=== PATIENT | female | born 1955 | race African-American/Black ===

== ENCOUNTER 2019-04-07 13:12 | Emergency (ER) | payer MEDICARE ==
[2019-04-07 13:48] VITALS: BP 153/79
--- NOTE | 2019-04-07 13:55 | ER Document Report ---
ED Medical Screen (RME) - General Chief Complaint: Sore Throat Stated Complaint: SORE THROAT Time Seen by Provider: 04/07/19 13:52 Primary Care Provider: PETER FRASER MD [Primary Care Provider] - Follow up as needed Mode of Arrival: Ambulatory Information source: Patient Notes: 64-year-old female presents to ED for complaint of pain in the throat right ear and right side of her neck. She does not have tonsils that she has had a tonsillectomy. She is alert oriented respirations regular nonlabored speaking in full sentences walks with even steady gait. She is afebrile at this time. She states she is just feeling miserable. I have greeted and performed a rapid initial assessment of this patient. A comprehensive ED assessment and evaluation of the patient, analysis of test results and completion of medical decision making process will be conducted by an additional ED providers. TRAVEL OUTSIDE OF THE [place] IN LAST 30 DAYS: No - Related Data Allergies/Adverse Reactions: butorphanol tartrate [From Stadol] Allergy (Verified 04/07/19 13:52) gabapentin [From Neurontin] Allergy (Verified 04/07/19 13:52) naproxen [From Naprosyn] Allergy (Verified 04/07/19 13:52) Penicillins Allergy (Verified 04/07/19 13:52) tramadol HCl [From Ultram] Allergy (Verified 04/07/19 13:52) Past Medical History Musculoskeltal Medical History: Reports Hx Arthritis Physical Exam - Vital signs Vitals: Temp Pulse Resp BP Pulse Ox 98.9 F 67 16 153/79 H 98 04/07/19 13:47 04/07/19 13:47 04/07/19 13:47 04/07/19 13:47 04/07/19 13:47 Course - Vital Signs Vital signs: Temp Pulse Resp BP Pulse Ox 98.9 F 67 16 153/79 H 98 04/07/19 13:47 04/07/19 13:47 04/07/19 13:47 04/07/19 13:47 04/07/19 13:47 Doctor's Discharge - Discharge Referrals: PETER FRASER MD [Primary Care Provider] - Follow up as needed
--- NOTE | 2019-04-07 14:17 | ER Document Report ---
HPI - HPI Patient complains to provider of: sore throat right ear pain Time Seen by Provider: 04/07/19 13:52 Onset: Other - 2-3 days ago Severity: Moderate Pain Level: 3 Context: This 64-year-old female presents emergency department with complaints of sore throat and right-sided ear pain. Patient reports that she was exposed to strep approximately 1 week ago. Reports she feels awful. Reports her ear hurts and it hurts to swallow. Denies vomiting but reports some diarrhea last couple days. Reports she has not taken her temperature but she is felt hot and she has been taking Tylenol as indicated. Associated Symptoms: Fever, Sore throat Exacerbated by: Denies Relieved by: Denies Similar symptoms previously: No Recently seen / treated by doctor: No - REPRODUCTIVE Reproductive: DENIES: : Past Medical History - General Information source: Patient - Social History Smoking Status: Never Smoker Chew tobacco use (# tins/day): No Frequency of alcohol use: None Drug Abuse: None Family History: Reviewed & Not Pertinent Patient has suicidal ideation: No Patient has homicidal ideation: No Musculoskeletal Medical History: Reports Hx Arthritis Vertical Provider Document - CONSTITUTIONAL Agree With Documented VS: Yes Exam Limitations: No Limitations General Appearance: WD/WN, No Apparent Distress - INFECTION CONTROL TRAVEL OUTSIDE OF THE [place] IN LAST 30 DAYS: No - HEENT HEENT: Atraumatic, Normocephalic, Pharyngeal Erythema - Good airway speaks clearly no trismus no Jarrod's. negative: Conjuctival Injection, Tympanic Membrane Red, Tympanic Membrane Bulging - NECK Neck: Normal Inspection, Supple. negative: Lymphadenopathy-Left, Lymphadenopathy-Right - RESPIRATORY Respiratory: Breath Sounds Normal, No Respiratory Distress - CARDIOVASCULAR Cardiovascular: Regular Rate - GI/ABDOMEN Gastrointestinal: Abdomen Soft, Abdomen Non-Tender - MUSCULOSKELETAL/EXTREMETIES Musculoskeletal/Extremeties: KIMBERLY POLANCO - NEURO Level of Consciousness: Awake, Alert, Appropriate Motor/Sensory: No Motor Deficit - DERM Integumentary: Warm, Dry, No Rash Course - Re-evaluation Re-evalutation: 04/07/19 14:50 64-year-old female presents with sore throat right ear pain for the past 2 to 3 days. Reports she was exposed to strep throat last week. Reports she feels awful. Reports fever but has not taken her temperature has been treating herself with Tylenol without relief of symptoms. Patient was instructed on negative strep with throat culture pending but will treat patient due to her exposure to strep. Patient is allergic to penicillin but has taken Zithromax in the past. She reports sometimes she gets yeast infections so Diflucan was also ordered. She was instructed to take meds as prescribed and follow-up with [facility] within the week. She verbalized understanding to all instructions. Dictation of this chart was performed using voice recognition software; therefore, there may be some unintended grammatical errors. - Vital Signs Vital signs: Temp Pulse Resp BP Pulse Ox 98.9 F 67 16 153/79 H 98 04/07/19 13:47 04/07/19 13:47 04/07/19 13:47 04/07/19 13:47 04/07/19 13:47 Discharge - Discharge Clinical Impression: Sore throat, Strep throat exposure, right ear pain Condition: Stable Disposition: HOME, SELF-CARE Instructions: Sore Throat ([facility]), Azithromycin ([facility]), Fluconazole ([facility]) Additional Instructions: *You have been evaluated for a sore throat *Your strep test was negative. A throat culture is pending. You may be contacted in 3 to 4 days should you need a different antibiotic. *take medication as prescribed *Monitor your temperature take Tylenol as indicated *In the meantime gargle with warm salt water and utilize throat lozenges for comfort *Do not let anyone drink/eat after you *Good hand washing *Follow-up with a primary care provider within 1 week for recheck *Return to ED for worsening condition change, needs, difficulty swallowing worsening symptoms concerns Monitor your blood pressure. Your blood pressure was elevated today. This may be because you were anxious, in pain or because you need medication. It is important to follow up with your primary care provider for full evaluation. Prescriptions: Fluconazole [Diflucan] 150 mg PO ONCE PRN #1 tablet PRN Reason: Azithromycin [Zithromax 250 mg Tablet] 250 mg PO ASDIR PRN #6 tablet PRN Reason: Forms: Elevated Blood Pressure Referrals: PETER FRASER MD [Primary Care Provider] - Follow up in 1 week
== END 2019-04-07 14:55 | disposition home or self-care (01) ==
LOC: ER 13:12
DX: J02.9 Acute pharyngitis, unspecified (principal); H92.01 Otalgia, right ear
CPT/HCPCS: 87070; 87880; 99283

== ENCOUNTER 2019-08-27 18:09 | Emergency (ER) | payer MEDICARE ==
[2019-08-27] MEDS ORDERED: IPRATROPIUM/ALBUTEROL 0.5-2.5 MG/3 ML AMPUL NEB ONE (18:22)
[2019-08-27] MEDS ORDERED: METHYLPREDNISOLONE INJ 125 MG/2 ML SDV IV ONE (18:22)
--- NOTE | 2019-08-27 18:24 | ER Document Report ---
ED Medical Screen (RME) - General Chief Complaint: Cough Stated Complaint: COUGH,CONGESTION Time Seen by Provider: 08/27/19 18:19 Primary Care Provider: PETER FRASER MD [Primary Care Provider] - Follow up as needed Mode of Arrival: Ambulatory Information source: Patient Notes: Patient is a 64-year-old female patient presenting to the emergency department chief complaint fever, cough, shortness of breath and fatigue. Patient reports symptoms ongoing for the last week, worsening over the last few days. She reports fever at home of 101.6. She states she has been taking Tylenol and ibuprofen every 4 hours. Exam: Coarse lung sounds bilaterally, expiratory wheezes noted, mildly increased work of breathing. I have greeted and performed a rapid initial assessment of this patient. A comprehensive ED assessment and evaluation of the patient, analysis of test results and completion of the medical decision making process will be conducted by additional ED providers. I have specifically instructed the patient or family members with the patient to immediately return to any nursing staff should anything change in the patient's condition or with their chief complaint. TRAVEL OUTSIDE OF THE [place] IN LAST 30 DAYS: No - Related Data Allergies/Adverse Reactions: butorphanol tartrate [From Stadol] Allergy (Verified 04/07/19 13:52) gabapentin [From Neurontin] Allergy (Verified 04/07/19 13:52) naproxen [From Naprosyn] Allergy (Verified 04/07/19 13:52) Penicillins Allergy (Verified 04/07/19 13:52) tramadol HCl [From Ultram] Allergy (Verified 04/07/19 13:52) Past Medical History Musculoskeltal Medical History: Reports Hx Arthritis Physical Exam - Vital signs Vitals: Temp Pulse Resp BP Pulse Ox 98.6 F 66 16 149/79 H 94 08/27/19 18:16 08/27/19 18:16 08/27/19 18:16 08/27/19 18:16 08/27/19 18:16 Course - Vital Signs Vital signs: Temp Pulse Resp BP Pulse Ox 98.6 F 66 16 149/79 H 94 08/27/19 18:16 08/27/19 18:16 08/27/19 18:16 08/27/19 18:16 08/27/19 18:16 Doctor's Discharge - Discharge Referrals: PETER FRASER MD [Primary Care Provider] - Follow up as needed
--- NOTE | 2019-08-27 18:47 | RADIOLOGY REPORT (SQ) ---
EXAM DESCRIPTION: CHEST 2 VIEWS COMPLETED DATE/TIME: 08/27/2019 6:33 pm REASON FOR STUDY: cough/fever COMPARISON: None. EXAM PARAMETERS: NUMBER OF VIEWS: two views TECHNIQUE: Digital Frontal and Lateral radiographic views of the chest acquired. RADIATION DOSE: NA LIMITATIONS: none FINDINGS: LUNGS AND PLEURA: No opacities, masses or pneumothorax. No pleural effusion. MEDIASTINUM AND HILAR STRUCTURES: No masses or contour abnormalities. HEART AND VASCULAR STRUCTURES: Heart normal size. No evidence for failure. BONES: No acute findings. HARDWARE: None in the chest. OTHER: No other significant finding. IMPRESSION: NO ACUTE RADIOGRAPHIC FINDING IN THE CHEST. TECHNICAL DOCUMENTATION: JOB ID: [id number] 2010 [employer]- All Rights Reserved Reading location - IP/workstation name: [email or web address]
[2019-08-27 19:58] LABS: APPEARANCE,URINE CLEAR; BILIRUBIN,URINE NEGATIVE (NEGATIVE); COLOR,URINE YELLOW; GLUCOSE, URINE NEGATIVE (NEGATIVE); KETONES,URINE NEGATIVE (NEGATIVE); LEUKOCYTE ESTERASE,URINE SMALL (NEGATIVE); NITRITE,URINE NEGATIVE (NEGATIVE); PROTEIN,URINE NEGATIVE (NEGATIVE); URINE SPECIFIC GRAVITY 1.026; UROBILINOGEN,URINE NEGATIVE mg/dL (<2.0)
[2019-08-27] MEDS ORDERED: CEFTRIAXONE 1 GM/D5W RTU 1 GM/50 ML RTUPB IV ONE (20:32)
[2019-08-27] MEDS ORDERED: DEXAMETHASONE SOD PHOS INJ 10 MG/1 ML VIAL IV ONE (20:33)
[2019-08-27] MEDS ORDERED: ALBUTEROL SULFATE 0.083% NEB 2.5 MG/3 ML AMPUL NEB ONE (20:34)
--- NOTE | 2019-08-27 20:34 | ER Document Report ---
ED General - General Chief Complaint: Cold Symptoms Stated Complaint: COUGH,CONGESTION Time Seen by Provider: 08/27/19 18:19 Primary Care Provider: PETER FRASER MD [Primary Care Provider] - Follow up as needed Mode of Arrival: Ambulatory Information source: Patient Notes: pt comes to ed from home via pov brought by self and daughter for c/o 1 week onset congestion, sharp sorethroat, sinus pain, brown productive cough and home temp 101.6. motrin and tylenol at approx 1500. 64-year-old black female arrives with her family with chief complaint of diffuse myalgias nonproductive cough sore throat fever chills rhinorrhea; her grandson has strep throat and 4 other members of the family have flulike symptoms. They have had the symptoms for least 4 or 5 days each. Patient received breathing treatment upon arrival. She has some wheezing in her left anterior valera but clear on the right throat is erythemic; patient has been using her grandsons albuterol inhaler all week long. This is helped somewhat but she continues to have wheezing. Vital signs are within normal limits TRAVEL OUTSIDE OF THE [place] IN LAST 30 DAYS: No - Related Data Allergies/Adverse Reactions: adhesive tape Allergy (Verified 08/27/19 18:25) butorphanol tartrate [From Stadol] Allergy (Verified 08/27/19 18:25) gabapentin [From Neurontin] Allergy (Verified 08/27/19 18:25) naproxen [From Naprosyn] Allergy (Verified 08/27/19 18:25) Penicillins Allergy (Verified 08/27/19 18:25) tramadol HCl [From Ultram] Allergy (Verified 08/27/19 18:25) Home Medications: denies Past Medical History - General Information source: Patient - EMS anything - Social History Smoking Status: Former Smoker Cigarette use (# per day): No Chew tobacco use (# tins/day): No Smoking Education Provided: No Frequency of alcohol use: None Drug Abuse: None Family History: Reviewed & Not Pertinent Patient has suicidal ideation: No Patient has homicidal ideation: No Musculoskeletal Medical History: Reports Hx Arthritis Past Surgical History: Reports: Hx Abdominal Surgery - gastric bypass 2006, Hx Tonsillectomy Review of Systems - Review of Systems Constitutional: See HPI, Malaise, Weakness EENT: See HPI, Nose congestion Cardiovascular: No symptoms reported Respiratory: See HPI, Cough Gastrointestinal: No symptoms reported Genitourinary: No symptoms reported Female Genitourinary: No symptoms reported Musculoskeletal: No symptoms reported Skin: No symptoms reported Hematologic/Lymphatic: No symptoms reported Neurological/Psychological: No symptoms reported Physical Exam - Vital signs Vitals: Temp Pulse Resp BP Pulse Ox 98.6 F 66 16 149/79 H 94 08/27/19 18:16 08/27/19 18:16 08/27/19 18:16 08/27/19 18:16 08/27/19 18:16 Interpretation: Normal - General General appearance: Appears well - HEENT Head: Normocephalic Eyes: Normal Conjunctiva: Normal Cornea: Normal Extraocular movements intact: Yes Eyelashes: Normal Pupils: PERRL Sinus: Redness Nasal: Clear rhinorrhea Mouth/Lips: Normal Mucous membranes: Dry - Respiratory Respiratory status: No respiratory distress Chest status: Nontender Breath sounds: Normal Chest palpation: Normal - Cardiovascular Rhythm: Regular Heart sounds: Normal auscultation Murmur: No Friction rub: No Jessy's crunch: No - Abdominal Inspection: Normal Distension: No distension Bowel sounds: Normal Tenderness: Nontender Organomegaly: No organomegaly - Back Back: Normal - Extremities General upper extremity: Normal inspection General lower extremity: Normal inspection - Neurological Neuro grossly intact: Yes Cognition: Normal Orientation: AAOx4 [place] Coma Scale Eye Opening: Spontaneous [place] Coma Scale Verbal: Oriented [place] Coma Scale Motor: Obeys Commands [place] Coma Scale Total: 15 Speech: Normal Cranial nerves: Normal Cerebellar coordination: Normal Motor strength normal: LUE, RUE, LLE, RLE - Psychological Associated symptoms: Normal affect - Skin Skin Temperature: Warm Skin Moisture: Dry Course - Vital Signs Vital signs: Temp Pulse Resp BP Pulse Ox 98.6 F 66 16 149/79 H 94 08/27/19 18:16 08/27/19 18:16 08/27/19 18:16 08/27/19 18:16 08/27/19 18:16 - Laboratory Laboratory results interpreted by me: 08/27/19 19:18 Ur Leukocyte Esterase SMALL H - Diagnostic Test Radiology reviewed: Reports reviewed Radiology results interpreted by me: 08/27/19 20:49 No infiltrates noted Critical Care Note - Critical Care Note Total time excluding time spent on procedures (mins): 90 Discharge - Discharge Clinical Impression: Influenza URI (upper respiratory infection) Qualifiers: URI type: unspecified URI Qualified Code(s): J06.9 - Acute upper respiratory infection, unspecified RAD (reactive airway disease) with wheezing Qualifiers: Asthma severity: unspecified severity Asthma persistence: unspecified Asthma complication type: uncomplicated Qualified Code(s): J45.909 - Unspecified asthma, uncomplicated UTI (urinary tract infection) Qualifiers: Urinary tract infection type: acute cystitis Hematuria presence: without hematuria Qualified Code(s): N30.00 - Acute cystitis without hematuria Disposition: HOME, SELF-CARE Additional Instructions: Follow-up with personal doctor this week return to ER for true emergencies take medicines as directed encourage fluids try drinking chamomile tea use inhaler as directed; Prescriptions: Hydrocodone Bit/Homatropine [Hycodan Syrup 5-1.5 mg/5 ml Ud Cup] 5 ml PO Q4HP PRN #120 ml PRN Reason: Dexamethasone [Decadron 4 Mg Tablet] 4 mg PO BID #10 tablet Levofloxacin [Levaquin 500 mg Tablet] 500 mg PO DAILY #10 tablet Albuterol Sulfate [Proair HFA Inhalation Aerosol 8.5 gm MDI] 2 puff IH Q4H PRN #1 mdi PRN Reason: Referrals: PETER FRASER MD [Primary Care Provider] - Follow up as needed
[2019-08-27 21:54] VITALS: BP 147/79
--- NOTE | 2019-08-28 11:46 | EKG REPORT ---
SEVERITY:- NORMAL ECG - SINUS RHYTHM : Confirmed by: Елена Orellana 28-Aug-2019 11:45:55
== END 2019-08-27 21:56 | disposition home or self-care (01) ==
LOC: ER 18:09
DX: J11.1 Influenza due to unidentified influenza virus with other respiratory manifestations (principal); J45.909 Unspecified asthma, uncomplicated; N30.00 Acute cystitis without hematuria; R53.1 Weakness; Z88.0 Allergy status to penicillin
CPT/HCPCS: 93005; 94640 ×2; 99291; 99292; 96375; 96365; 87040; 87070; 87880; 81001; 71046; 93010; J2930; J0696; J1100; A9270 ×2; J7620

== ENCOUNTER 2019-11-12 16:04 | Emergency (ER) | payer MEDICARE ==
--- NOTE | 2019-11-12 16:21 | ER Document Report ---
ED Medical Screen (RME) - General Chief Complaint: Leg Pain Stated Complaint: LOWER LEFT LEG PAIN Time Seen by Provider: 11/12/19 16:16 Primary Care Provider: PETER FRASER MD [Primary Care Provider] - Follow up as needed Mode of Arrival: Carried Notes: 64-year-old female presented to ED for swelling and pain to her left lower leg. She states that has had some swelling off and on but this morning she woke up too much worse swelling and pain then normal. She is very tender to touch states it feels hot. She states she is elevated at all day trying to decrease the pain and swelling. She is retired lives with the family does not smoke drink or do any drugs she has a history of asthma arthritis migraines and anxiety. I have greeted and performed a rapid initial assessment of this patient. A comprehensive ED assessment and evaluation of the patient, analysis of test results and completion of medical decision making process will be conducted by an additional ED providers. TRAVEL OUTSIDE OF THE [place] IN LAST 30 DAYS: No - Related Data Allergies/Adverse Reactions: adhesive tape Allergy (Verified 08/27/19 18:25) butorphanol tartrate [From Stadol] Allergy (Verified 08/27/19 18:25) gabapentin [From Neurontin] Allergy (Verified 08/27/19 18:25) naproxen [From Naprosyn] Allergy (Verified 08/27/19 18:25) Penicillins Allergy (Verified 08/27/19 18:25) tramadol HCl [From Ultram] Allergy (Verified 08/27/19 18:25) Past Medical History - Social History Frequency of alcohol use: None Drug Abuse: None Lives with: Family Family history: Reviewed & Not Pertinent - Past Medical History Cardiac Medical History: Reports: None Pulmonary Medical History: Reports: Hx Asthma EENT Medical History: Reports: None Neurological Medical History: Reports: Hx Migraine Endocrine Medical History: Reports: None Renal/ Medical History: Reports: None Malignancy Medical History: Reports: None GI Medical History: Reports: None Musculoskeltal Medical History: Reports Hx Arthritis Skin Medical History: Reports None Psychiatric Medical History: Reports: None Traumatic Medical History: Reports: None Infectious Medical History: Reports: None Past Surgical History: Reports: Hx Abdominal Surgery - gastric bypass 2006, Hx Tonsillectomy - Immunizations Immunizations up to date: Yes Review of Systems - Review of Systems Constitutional: No symptoms reported EENT: No symptoms reported Cardiovascular: No symptoms reported Respiratory: No symptoms reported Gastrointestinal: No symptoms reported Genitourinary: No symptoms reported Female Genitourinary: No symptoms reported Musculoskeletal: Leg swelling, Ankle swelling Skin: Change in color Hematologic/Lymphatic: No symptoms reported Neurological/Psychological: No symptoms reported Physical Exam - Vital signs Vitals: Temp Pulse Resp BP Pulse Ox 98.4 F 81 16 137/87 H 96 11/12/19 16:08 11/12/19 16:08 11/12/19 16:08 11/12/19 16:08 11/12/19 16:08 Interpretation: Normal - General General appearance: Appears well, Alert - HEENT Head: Normocephalic, Atraumatic Eyes: Normal Pupils: PERRL - Respiratory Respiratory status: No respiratory distress Chest status: Nontender Breath sounds: Normal Chest palpation: Normal - Cardiovascular Rhythm: Regular Heart sounds: Normal auscultation Murmur: No - Abdominal Inspection: Normal Distension: No distension Bowel sounds: Normal Tenderness: Nontender Organomegaly: No organomegaly - Back Back: Normal, Nontender - Extremities General upper extremity: Normal inspection, Nontender, Normal color, Normal ROM, Normal temperature General lower extremity: Normal inspection, Nontender, Normal color, Normal ROM, Normal temperature, Normal weight bearing. No: Jeffery's sign Knee: Normal, Nontender Calf: Tender, Other - Swelling Ankle: Tender, Edema Foot: Tender, Edema, No evidence of FB - Neurological Neuro grossly intact: Yes Cognition: Normal Orientation: AAOx4 [place] Coma Scale Eye Opening: Spontaneous [place] Coma Scale Verbal: Oriented [place] Coma Scale Motor: Obeys Commands [place] Coma Scale Total: 15 Speech: Normal Motor strength normal: LUE, RUE, LLE, RLE Sensory: Normal - Psychological Associated symptoms: Normal affect, Normal mood - Skin Skin Temperature: Warm Skin Moisture: Dry Skin Color: Normal Course - Vital Signs Vital signs: Temp Pulse Resp BP Pulse Ox 98.4 F 81 16 137/87 H 96 11/12/19 16:15 11/12/19 16:08 11/12/19 16:08 11/12/19 16:08 11/12/19 16:08 Doctor's Discharge - Discharge Referrals: PETER FRASER MD [Primary Care Provider] - Follow up as needed
[2019-11-12 16:51] LABS: ABSOLUTE EOSINOPHILS # (AUTO) 0.2 10^3/uL (0.0-0.6); ABSOLUTE LYMPHOCYTES (AUTO) 1.5 10^3/uL (0.5-4.7); ABSOLUTE MONOCYTES (AUTO) 0.3 10^3/uL (0.1-1.4); ABSOLUTE NEUT (AUTO) 1.8 10^3/uL (1.7-8.2); BASOPHILS % (AUTO) 0.7 % (0-2); EOSINOPHILS % (AUTO) 5.9 % (0-6); HEMATOCRIT 36.9 % (36.0-47.0); HEMOGLOBIN 12.4 g/dL (12.0-15.5); LYMPHOCYTES % (AUTO) 38.7 % (13-45); MEAN CORPUSCULAR HEMOGLOBIN 30.8 pg (27.0-33.4); MEAN CORPUSCULAR HGB CONC 33.7 g/dL (32.0-36.0); MEAN CORPUSCULAR VOLUME 91 fl (80-97); MONOCYTES % (AUTO) 8.6 % (3-13); PLATELET COUNT 262 10^3/uL (150-450); RED BLOOD COUNT 4.04 10^6/uL (3.72-5.28); RED CELL DISTRIBUTION WIDTH 12.4 % (11.5-14.0); SEGMENTED NEUTROPHILS % (AUTO) 46.1 % (42-78); TOTAL CELLS COUNTED % (AUTO) 100 %; WHITE BLOOD COUNT 3.9 10^3/uL (4.0-10.5)
[2019-11-12 16:56] LABS: INTERNATIONAL RATION (INR) 0.95; PROTHROMBIN TIME 12.6 SEC (11.4-15.4)
[2019-11-12 16:57] LABS: PARTIAL THROMBOPLASTIN TIME 29.1 SEC (23.5-35.8)
[2019-11-12] MEDS ORDERED: OXYCODONE-ACETAMINOPHEN 5-325 MG TABLET PO ONE (17:22)
--- NOTE | 2019-11-12 17:22 | ER Document Report ---
ED Extremity Problem, Lower - General Chief Complaint: Leg Pain Stated Complaint: LOWER LEFT LEG PAIN Time Seen by Provider: 11/12/19 17:10 Primary Care Provider: PETER FRASER MD [NO LOCAL MD] - Follow up as needed Mode of Arrival: Carried Information source: Patient Notes: Patient presents complaining of left lower extremity swelling with redness that started early this morning. Patient denies any trauma to the leg. Patient denies any history of PE or DVT. Patient denies any recent surgical procedure, bedrest, or long distance travel. Patient denies any fever. TRAVEL OUTSIDE OF THE [place] IN LAST 30 DAYS: No - HPI Patient complains to provider of: Pain, Swelling Location: Leg Occurred: This morning Quality of pain: Other - Leg feels like glass is under the skin Pain Level: 5 Associated symptoms: denies: Fever, Unable to bear weight Relieved by: Nothing - Related Data Allergies/Adverse Reactions: adhesive tape Allergy (Verified 11/12/19 19:12) butorphanol tartrate [From Stadol] Allergy (Verified 11/12/19 19:12) gabapentin [From Neurontin] Allergy (Verified 11/12/19 19:12) naproxen [From Naprosyn] Allergy (Verified 11/12/19 19:12) Penicillins Allergy (Verified 11/12/19 19:12) tramadol HCl [From Ultram] Allergy (Verified 11/12/19 19:12) Past Medical History - General Information source: Patient - Social History Smoking Status: Never Smoker Frequency of alcohol use: None Drug Abuse: None Lives with: Family Family History: Reviewed & Not Pertinent Patient has homicidal ideation: No - Past Medical History Cardiac Medical History: Reports: None Pulmonary Medical History: Reports: Hx Asthma EENT Medical History: Reports: None Neurological Medical History: Reports: Hx Migraine Endocrine Medical History: Reports: None Renal/ Medical History: Reports: None Malignancy Medical History: Reports: None GI Medical History: Reports: None Musculoskeletal Medical History: Reports Hx Arthritis Skin Medical History: Reports None Psychiatric Medical History: Reports: None Traumatic Medical History: Reports: None Infectious Medical History: Reports: None Past Surgical History: Reports: Hx Abdominal Surgery - gastric bypass 2006, Hx Tonsillectomy - Immunizations Immunizations up to date: Yes Review of Systems - Review of Systems Constitutional: No symptoms reported. denies: Fever, Recent illness EENT: No symptoms reported Cardiovascular: No symptoms reported Respiratory: No symptoms reported. denies: Cough, Short of breath Gastrointestinal: No symptoms reported. denies: Nausea, Vomiting Genitourinary: No symptoms reported Female Genitourinary: No symptoms reported Musculoskeletal: Leg swelling, Other - Lower extremity pain. denies: Back pain Skin: Change in color - Erythema to left lower extremity Hematologic/Lymphatic: No symptoms reported Neurological/Psychological: No symptoms reported Physical Exam - Vital signs Vitals: Temp Pulse Resp BP Pulse Ox 98.4 F 81 16 137/87 H 96 11/12/19 16:08 11/12/19 16:08 11/12/19 16:08 11/12/19 16:08 11/12/19 16:08 - General General appearance: Appears well, Alert In distress: None - HEENT Head: Normocephalic, Atraumatic Eyes: Normal Conjunctiva: Normal Nasal: Normal Mouth/Lips: Normal Mucous membranes: Normal Neck: Normal, Supple - Respiratory Respiratory status: No respiratory distress. No: Tachypnea Chest status: Nontender Breath sounds: Normal Chest palpation: Normal - Cardiovascular Rhythm: Regular Heart sounds: S1 appreciated, S2 appreciated Pulses: Normal: Dorsalis pedis - Back Back: Normal, Nontender - Extremities General upper extremity: Normal inspection, Normal ROM General lower extremity: Normal ROM Calf: Tender - Tenderness to distal half of the left lower extremity with 1+ edema and erythema, patient with calor to the areas that are erythematous Foot: Normal, Nontender - Neurological Neuro grossly intact: Yes Cognition: Normal Orientation: AAOx4 [place] Coma Scale Eye Opening: Spontaneous [place] Coma Scale Verbal: Oriented [place] Coma Scale Motor: Obeys Commands [place] Coma Scale Total: 15 - Psychological Associated symptoms: Normal affect, Normal mood - Skin Skin Temperature: Warm Skin Moisture: Dry Skin Color: Erythema - Distal half of left lower extremity Course - Re-evaluation Re-evalutation: 11/12/19 18:29 Patient's ultrasound reviewed, no evidence for acute DVT at this time. Patient without fever or leukocytosis. Suspect likely early cellulitis at this time. Patient will be started on cephalexin, good return precautions discussed. - Vital Signs Vital signs: Temp Pulse Resp BP Pulse Ox 98.5 F 67 18 113/79 98 11/12/19 19:12 11/12/19 19:05 11/12/19 19:05 11/12/19 19:05 11/12/19 19:05 - Laboratory Result Diagrams: 11/12/19 16:28 11/12/19 16:28 Laboratory results interpreted by me: 11/12/19 11/12/19 16:28 16:28 WBC 3.9 L Carbon Dioxide 33 H Anion Gap 4 L Total Protein 6.1 L 11/12/19 19:44 Labs- Entire Visit 11/12/19 11/12/19 11/12/19 16:28 16:28 16:28 WBC 3.9 L RBC 4.04 Hgb 12.4 Hct 36.9 MCV 91 MCH 30.8 MCHC 33.7 RDW 12.4 Plt Count 262 Lymph % (Auto) 38.7 [place] % (Auto) 8.6 Eos % (Auto) 5.9 Baso % (Auto) 0.7 Absolute Neuts (auto) 1.8 Absolute Lymphs (auto) 1.5 Absolute Monos (auto) 0.3 Absolute Eos (auto) 0.2 Absolute Basos (auto) 0.0 Seg Neutrophils % 46.1 PT 12.6 INR 0.95 APTT 29.1 Sodium 139.9 Potassium 3.8 Chloride 103 Carbon Dioxide 33 H Anion Gap 4 L BUN 13 Creatinine 0.60 Est GFR ( Amer) > 60 Est GFR (MDRD) Non-Af > 60 Glucose 102 Calcium 8.8 Total Bilirubin 0.2 Direct Bilirubin 0.0 Neonat Total Bilirubin Not Reportable Neonat Direct Bilirubin Not Reportable Neonat Indirect Bili Not Reportable AST 33 ALT 24 Alkaline Phosphatase 72 Total Protein 6.1 L Albumin 3.7 Discharge - Discharge Clinical Impression: Cellulitis Qualifiers: Site of cellulitis: extremity Site of cellulitis of extremity: lower extremity Laterality: left Qualified Code(s): L03.116 - Cellulitis of left lower limb Condition: Stable Disposition: HOME, SELF-CARE Instructions: Cellulitis ([facility]), Cephalexin ([facility]) Additional Instructions: Return immediately for any new or worsening symptoms Followup with your primary care provider, call tomorrow to make a followup appointment Prescriptions: Cephalexin Monohydrate [Keflex 500 mg Capsule] 500 mg PO Q6H 7 Days #28 capsule Referrals: PETER FRASER MD [NO LOCAL MD] - Follow up as needed
--- NOTE | 2019-11-12 17:54 | RADIOLOGY REPORT (SQ) ---
EXAM DESCRIPTION: VENOUS UNILATERAL LOWER IMAGES COMPLETED DATE/TIME: 11/12/2019 5:24 pm REASON FOR STUDY: swelling painfull left lower leg COMPARISON: None. TECHNIQUE: Dynamic and static fields scale and color images acquired of the left leg venous system. Se lected spectral images acquired with additional compression and augmentation maneuvers. The contralat eral common femoral vein and saphenofemoral junction were also imaged. Images stored on PACS. LIMITATIONS: None. FINDINGS: COMMON FEMORAL: Normal phasicity, compression and augmentation. No visualized echogenic ma terial on fields scale. No defects on color images. FEMORAL: Normal compression and augmentation. No visualized echogenic material on fields scale. No defe cts on color images. POPLITEAL: Normal compression, augmentation. No visualized echogenic material on fields scale. No defec ts on color images. CALF VESSELS: Normal compression, augmentation. No visualized echogenic material on fields scale. No de fects on color images. GSV and SSV: Normal compression, augmentation. No visualized echogenic material on fields scale. No def ects on color images. ANY DEEP VENOUS INSUFFICIENCY: Not evaluated. ANY EVIDENCE OF POPLITEAL CYST: No. OTHER: No other significant finding. CONTRALATERAL COMMON FEMORAL VEIN AND SAPHENOFEMORAL JUNCTION: Normal phasicity, compression and augmentation. No visualized echogenic material on fields scale. No de fects on color images. IMPRESSION: NO EVIDENCE DVT OR SVT IN THE LEFT LEG. TECHNICAL DOCUMENTATION: JOB ID: [id number] [employer]- All Rights Reserved Reading location - IP/workstation name: [email or web address]
[2019-11-12 18:16] LABS: ALBUMIN 3.7 g/dL (3.5-5.0); ALKALINE PHOSPHATASE 72 U/L (38-126); ASPARTATE AMINO TRANSFERASE 33 U/L (14-36); BILIRUBIN,TOTAL 0.2 mg/dL (0.2-1.3); BLOOD UREA NITROGEN 13 mg/dL (7-20); CALCIUM 8.8 mg/dL (8.4-10.2); CARBON DIOXIDE 33 mmol/L (22-30); CHLORIDE 103 mmol/L (98-107); GLUCOSE 102 mg/dL (75-110); POTASSIUM 3.8 mmol/L (3.6-5.0); TOTAL PROTEIN 6.1 g/dL (6.3-8.2)
[2019-11-12 18:17] LABS: ANION GAP 4 (5-19)
[2019-11-12] MEDS ORDERED: CEPHALEXIN 500 MG CAPSULE PO ONE (18:32)
[2019-11-12 19:12] VITALS: BP 113/79
== END 2019-11-12 19:05 | disposition home or self-care (01) ==
LOC: ER 16:04
DX: L03.116 Cellulitis of left lower limb (principal); J45.909 Unspecified asthma, uncomplicated; Z91.048 Other nonmedicinal substance allergy status; Z88.6 Allergy status to analgesic agent; Z88.0 Allergy status to penicillin; Z88.8 Allergy status to other drugs, medicaments and biological substances
CPT/HCPCS: 99284; 36415; 85025; 85610; 85730; 80053; 93971; A9270 ×2